=== PATIENT | female | born 1965 | race Caucasian/White ===

== ENCOUNTER → 2017-03-23 | Emergency (ER) | payer OTHER ==
[~2017-03-23] VITALS: Ht 162.6 cm; Wt 75.0 kg
[~2017-03-23] MED LIST: AMOXICILLIN875 MG PO; CEFTIN500 MG PO; CLARITIN 1010 MG/TAB PO; COZAAR100 MG PO; FLEXERIL 1010 MG/TAB PO; HUMALOG PEN100 U/ML SC; LANTUS100 U/ML; LANTUS100 U/ML SQ; LEVAQUIN 5500 MG/TA1 PO; LIPITOR20 MG PO; LISINOPRIL; LOPRESSOR100 MG PO; MACROBID 1100 MG/CAP PO; METOPROLOL SUCC50 MG PO; NORVASC 10MG10 MG PO; NOVOLOG FLEX100 U/ML SQ; PERCOCET 325 MG1 TA2 PO; PREVACID 15MG15 M1; PRILOSEC 20MG20 MG PO; ZOFRAN 4MG T4 MG/TAB PO; ZOFRAN ODT4 MG PO
[2017-03-23 13:58] VITALS: TEMP 97.3
[2017-03-23 14:20] LABS: BASO % 0.3 % (0.0-2.0); EOS % 0.3 % (0-4.0); GRAN # 6.7 (1.4-6.5); HEMATOCRIT 39.9 % (37.0-47.0); HEMOGLOBIN 13.9 g/dl (12.5-16.0); LYMPH # 4.1 (1.2-3.4); LYMPH % 35.1 % (20.0-51.0); MEAN CELL VOLUME 93 fl (80.0-100.0); MEAN CORPUSCULAR HEMOGLOBIN 32 pg (27.0-31.0); MEAN CORPUSCULAR HGB CONC 35 g/dl (33.0-37.0); MEAN PLATELET VOLUME 9.3 fl (7.4-10.4); MONO # 0.8 (0.1-0.6); MONO % 6.7 % (1.7-9.3); PLATELET COUNT 382 K/mm3 (130-400); RED BLOOD COUNT 4.31 M/mm3 (4.10-5.30)
[2017-03-23 14:23] LABS: PROTHROMBIN TIME 11.1 SECONDS (9.7-12.8)
[2017-03-23 14:26] LABS: PARTIAL THROMBOPLASTIN TIME 24.5 SECONDS (26.0-37.0)
[2017-03-23 14:36] LABS: ALANINE AMINOTRANSFERASE 44 U/L (9-52); ALBUMIN 4.3 gm/dL (3.5-5.0); ALKALINE PHOSPHATASE 142 U/L (50-136); ANION GAP 12 mmol/L (7-16); AST,SGOT 42 U/L (15-37); BILIRUBIN,TOTAL 0.5 mg/dL (0.0-1.0); BLOOD UREA NITROGEN 14 mg/dL (7-17); C-REACTIVE PROTEIN 0.9 mg/dL (0.0-0.9); CALCIUM 9.4 mg/dL (8.4-10.2); CARBON DIOXIDE 20 mmol/L (22-30); CHLORIDE 102 mmol/L (98-107); CREATININE, serum 0.68 mg/dL (0.52-1.25); GLUCOSE 258 mg/dL (74-106); LIPASE 59 U/L (23-300); POTASSIUM 3.5 mmol/L (3.4-5.0); SODIUM 135 mmol/L (137-145); TOTAL PROTEIN 7.4 gm/dL (6.4-8.2)
[2017-03-23 15:03] LABS: TROPONIN-I < 0.012 ng/mL (0.000-0.034)
[2017-03-23 16:19] LABS: COLLECTION METHOD CLEAN CATCH
[2017-03-23 16:50] LABS: MUCOUS Present /lpf; PH 5 (5-8); SQUAMOUS EPITHELIAL 0-2 /hpf; URINE APPEARANCE Clear; URINE BACTERIA None Seen /hpf; URINE BILIRUBIN Negative (NEGATIVE); URINE BLOOD 3+ (NEGATIVE); URINE COLOR Yellow; URINE GLUCOSE 2+ (NEGATIVE); URINE KETONE Negative (NEGATIVE); URINE LEUKOCYTE ESTERASE Negative (NEGATIVE); URINE NITRATE Negative (NEGATIVE); URINE PROTEIN(semi-quant) Negative (NEGATIVE); URINE RBC 20-50 /hpf; URINE UROBILINOGEN Negative (NEGATIVE)
[2017-03-23 17:20] VITALS: BP 140/79; PULSE 81
== END ==
LOC: COL.ER 13:47
PROVIDERS: Emergency Medicine; Family Medicine
DX: N39.0 Urinary tract infection, site not specified (principal); R19.7 Diarrhea, unspecified; I10 Essential (primary) hypertension; E11.9 Type 2 diabetes mellitus without complications; E78.5 Hyperlipidemia, unspecified; Z79.4 Long term (current) use of insulin
CPT/HCPCS: C9113; J1170; J2405; J7030; J7050; Q9967

== ENCOUNTER → 2019-03-28 | Outpatient (CLI) | payer OTHER | LOC: MC.RAD 02-13 14:45 | DX: Z12.31 Encounter for screening mammogram for malignant neoplasm of breast (principal) ==